=== PATIENT | female | born 1970 | race Two or more races ===

== ENCOUNTER 2024-09-10 14:23 | Emergency (ER) | payer MEDICAID, SELFPAY ==
[2024-09-10 14:42] VITALS: BP 113/66; PULSE 71; RESP 18; TEMP 36.6; O2SAT 96; BMI 29.9
--- NOTE | 2024-09-10 14:48 | XR_ITS ---
Examination: PA lateral chest 2 views TECHNIQUE: Upright PA lateral chest 2 views Exam date and time: September 10, 2024 1454 hours INDICATIONS: Shortness of breath today. FINDINGS: Normal heart size No pneumonia or pulmonary edema Moderate osteopenia IMPRESSION: No pneumonia or pulmonary edema
--- NOTE | 2024-09-10 14:48 | EKG_ITS ---
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
--- NOTE | 2024-09-10 14:49 | PD.EDRME ---
Rapid Medical Screening Exam RME Arrival date/time: 09/10/24 14:23 54 year old female present to ED for c/o of sob. I have greeted and performed a focused initial assessment of this patient. A comprehensive ED assessment and evaluation of the patient, analysis of all test results, and completion of the medical decision making process will be conducted by additional ED providers. Chief Complaint: Shortness of Breath/Dyspnea Time Seen by Provider: 09/10/24 14:40 Vital signs: Vital Signs Temperature 97.9 F 09/10/24 14:42 Pulse Rate 71 09/10/24 14:42 Respiratory Rate 18 09/10/24 14:42 Blood Pressure 113/66 09/10/24 14:42 Pulse Oximetry (%) 96 09/10/24 14:42 Oxygen Delivery Method Room Air 09/10/24 14:42
[2024-09-10 15:50] LABS: Basophils # (Auto) 0.1 Thou/mm3 (0.0-0.2); Basophils % (Auto) 1 % (0-2.5); Eosinophils # (Auto) 0.2 Thou/mm3 (0.0-0.5); Eosinophils % (Auto) 3 % (0-10); Hemoglobin 13.3 g/dL (12.0-16.0); Immature Granulocytes % (Auto) 0 % (0-0); Immature Granulocytes Auto 0.01 Thou/mm3 (0.00-0.00); Lymphocytes # (Auto) 1.5 Thou/mm3 (1.0-4.8); Lymphocytes % (Auto) 26 % (10-50); Mean Corpuscular HGB Conc 34.1 g/dl (31.0-37.0); Mean Corpuscular Hemoglobin 29.9 pg (25.0-35.0); Mean Corpuscular Volume 88 fL (80-100); Monocytes # (Auto) 0.3 Thou/mm3 (0.0-0.8); Monocytes % (Auto) 6 % (0-12); Neutrophils # (Auto) 3.7 Thou/mm3 (1.8-7.7); Neutrophils % (Auto) 64 % (37-80); Nucleated Red Blood Cell % 0 /100 WBC (0); Platelet Count 207 Thou/mm3 (140-440); RDW Standard Deviation 42.8 fL (36.4-46.3); Red Blood Count 4.45 Miln/mm3 (4.00-5.20); White Blood Count 5.7 Thou/mm3 (3.6-11.0)
[2024-09-10 16:16] LABS: B-Type Natriuretic Peptide < 20 pg/mL (0-100)
[2024-09-10 16:19] LABS: Alanine Aminotransferase 46 U/L (10-49); Albumin, Serum 4.8 gm/dL (3.5-5.0); Albumin/Globulin Ratio 1.4 (1.2-2.2); Alkaline Phosphatase 547 U/L (46-116); Anion Gap 10 (7-16); Aspartate Amino Transferase 87 U/L (0-34); BUN/Creatinine Ratio 12 Ratio (12-20); Blood Urea Nitrogen 11 mg/dL (9-23); Calcium 9.8 mg/dL (8.3-10.6); Calcium (Corrected) 9.8 mg/dL (8.5-10.1); Carbon Dioxide 24.1 mMol/L (20.0-31.0); Chloride 103 mMol/L (98-107); Creatinine (Component) 0.9 mg/dL (0.6-1.3); Estimated Creatinine Clearance 81.8 mL/min (>60); Globulin 3.4 gm/dL (2.3-3.5); Glucose 77 mg/dL (74-106); Osmolality,Calculated 272 (275-295); Potassium 4.1 mMol/L (3.4-5.1); Sodium 137 mMol/L (136-145); Total Protein 8.2 gm/dL (5.7-8.2); Troponin I < 0.002 ng/mL (0.0-0.045); eGFR > 60 See Note
[2024-09-10 18:43] LABS: Troponin I < 0.002 ng/mL (0.0-0.045)
[2024-09-10 20:25] VITALS: BP 138/81; PULSE 78; RESP 18; TEMP 36.3; O2SAT 96
--- NOTE | 2024-09-10 20:50 | PD.EDADULT ---
ED General RME/HPI General Chief complaint: Shortness of Breath/Dyspnea Stated complaint: INTERMITTENT SOB X 1 WK Time Seen by Provider: 09/10/24 14:40 Arrival date/time: 09/10/24 14:23 CC: Shortness of breath HPI intermittent over the past week, denies any chest pain or difficulty breathing no fever chills. Patient has no other complaints. RME / HPI RME / HPI narrative: 09/10/24 14:23 54 year old female present to ED for c/o of sob. I have greeted and performed a focused initial assessment of this patient. A comprehensive ED assessment and evaluation of the patient, analysis of all test results, and completion of the medical decision making process will be conducted by additional ED providers. Related Data Home Medications ?Medication ?Instructions ?Recorded ?Confirmed aripiprazole 30 mg tablet (Abilify) 30 mg PO QDAY 10/16/17 10/16/17 fluoxetine 40 mg capsule (Prozac) 80 mg PO DAILY 10/16/17 10/16/17 Previous Rx's ?Medication ?Instructions ?Recorded ibuprofen 600 mg tablet 600 mg PO TID #30 tabs 10/16/17 sulfamethoxazole 800 1 tab PO BID #14 tabs 10/16/17 mg-trimethoprim 160 mg tablet (Bactrim DS) ibuprofen 800 mg tablet 800 mg PO TID PRN pain #30 tabs 03/12/22 nirmatrelvir 300 mg (150 mg See Rx Instructions PO .COMPLEX 03/11/23 x2)-ritonavir 100 mg tablet,dose #30 tabs pack (Paxlovid) promethazine-DM 6.25 mg-15 mg/5 mL 5 ml PO Q6H #118 mL 03/11/23 oral syrup Allergies Allergy/AdvReac Type Severity Reaction Status Date / Time hernandez Allergy Severe Swelling Verified 09/10/24 14:26 of Lip/Tongue/Throat sanchez Allergy Severe Swelling Verified 09/10/24 14:26 of Lip/Tongue/Throat grass pollen Allergy Severe Swelling Verified 09/10/24 14:26 of Lip/Tongue/Throat juniper tar Allergy Severe Swelling Verified 09/10/24 14:26 of Lip/Tongue/Throat peanut Allergy Severe Swelling Verified 09/10/24 14:26 of Lip/Tongue/Throat peas Allergy Severe Swelling Verified 09/10/24 14:26 of Lip/Tongue/Throat aspirin AdvReac Severe Severe Verified 09/10/24 14:26 MIGRAINE Past Medical History Past Medical History CARDIAC: Negative Cardiac Disorders or Congestive Heart Failure RESPIRATORY: Negative Chronic Obstructive Pulmonary Disease (COPD) or Asthma GENITOURINARY: Negative Renal Disease ENDOCRINE: Negative Diabetes Mellitus Type 1 or Diabetes Mellitus Type 2 HEMATOLOGIC: Negative Sickle Cell Disease PSYCHO/SOCIAL: Positive Schizophrenia and Depression OTHER HISTORY: Positive Blood Transfusions; Negative Autoimmune Disease Family History FAMILY HISTORY: Positive Family Cardiac Disorders and Family Cancer; Negative Family Psychiatric Problems, Family Respiratory Disorders, Family Gastrointestinal Problems, Family Surgery or Family Anesthesia Reaction Surgical History SURGICAL: Positive Tonsillectomy Social History SMOKING STATUS: Former smoker ED Exam Narrative Physical exam: [General: Obese not in any acute distress Head normocephalic HEENT: Within acceptable limits Neck is supple nontender Chest equal chest rise nontender to palpation Respiratory: Clear to auscultation no wheezes crackles or rubs, no tachypnea no pursed lip breathing no nasal flaring. CV: Rate rhythm is regular no murmurs rubs or clicks Abdomen is distended secondary to body habitus soft nontender no masses positive bowel sounds all 4 quadrants Back: No CVA tenderness no spinous process tenderness from cervical spine thoracic and lumbar spine Skin: Intact no petechiae rash induration ulceration or crepitus Extremities: Moving all extremity against resistance cap refill less than 2 seconds neurosensory intact. No lower extremity edema Neuro: Awake alert oriented x3 Glascow coma 15 no focal deficits] Course Quality Measures none Orders Category Date Time Status Bedside Influenza A&B Antigen Test NOW Care 09/10/24 14:48 Completed EKG (ED ONLY) *Do not use* NOW Care 09/10/24 14:48 Completed EKG (ED Only) Stat Exams 09/10/24 14:48 Draft XR chest 2V Stat Exams 09/10/24 14:48 Completed BNP [B-Type Natriuretic Peptide] Stat Lab 09/10/24 15:07 Completed CBC Stat Lab 09/10/24 15:07 Completed CMP [Comprehensive Metabolic Panel] Stat Lab 09/10/24 15:07 Completed Troponin I Stat Lab 09/10/24 15:07 Completed Troponin I Stat Lab 09/10/24 17:40 Completed Vital Signs Vital signs: Vital Signs Temperature 97.9 F 09/10/24 14:42 Pulse Rate 71 09/10/24 14:42 Respiratory Rate 18 09/10/24 14:42 Blood Pressure 113/66 09/10/24 14:42 Pulse Oximetry (%) 96 09/10/24 14:42 Oxygen Delivery Method Room Air 09/10/24 14:42 [facility] Patient data External records reviewed:: [facility] previous records Clinical information provided by:: patient Social determinants that could affect healthcare access:: none Patient has the following chronic illnesses:: Depression GERD How is presenting disease/condition affected by chronic disease/condition?: uneffected by Evaluation data The following diagnostics were reviewed and interpreted by me:: lab results and radiology exam(s) Lab and/or radiology exams considered but not ordered:: CBC shows no acute leukocytosis anemia thrombocytopenia CMP shows no significant electrolyte imbalances renal impairment transaminitis other than alk phos of 547, Troponin and BNP within acceptable limits EKG performed at 1451 shows a ventricular rate of 72 ID interval 158 QRS of 8 4 QTc of [address] segment changes. Chest x-ray as interpreted by me read by radiology as negative for any acute finding requires emergent or immediate intervention Interpretation Summary: Patient claims to have shortness of breath and have there is no shortness of breath evidence with tachypnea or other physical signs as well as imaging and or chemistry that confirms this. Patient will be discharged home. Medications Medications considered but not ordered:: None Medication administrations:: None Consultations Consultation(s) initiated? (list below): No Diagnosis Differential Diagnosis ED Complaint MDM: Pneumonia bronchitis ACS Most likely diagnosis given after review of the tests above:: Shortness of breath Admission Indicated Admission indicated?: not indicated Explain why admission is indicated or not indicated:: Stable for discharge Admission Request Was there a request for admission?: No Disposition Plan Disposition Plan: Discharge Discharge Attestation Discharge Attestation: The patient and all family members were given an opportunity to ask questions and understood the discharge instructions. Discharge instructions specifically effects, indications for sooner follow up or return to the emergency department, and the expected course of current diagnosis. Patient condition: Stable Medical Decision Making Differential Diagnosis Differential Diagnosis: Pneumonia bronchitis ACS Lab Data 09/10/24 15:07 09/10/24 15:07 Labs: Lab Results 09/10/24 09/10/24 Range/Units 15:07 17:40 WBC 5.7 (3.6-11.0) Thou/mm3 RBC 4.45 (4.00-5.20) Miln/mm3 Hgb 13.3 (12.0-16.0) g/dL Hct 39.0 (36.0-46.0) % MCV 88 (80-100) fL MCH 29.9 (25.0-35.0) pg MCHC 34.1 (31.0-37.0) g/dl RDW Std Deviation 42.8 (36.4-46.3) fL Plt Count 207 (140-440) Thou/mm3 Neut % (Auto) 64 (37-80) % Lymph % (Auto) 26 (10-50) % [place] % (Auto) 6 (0-12) % Eos % (Auto) 3 (0-10) % Baso % (Auto) 1 (0-2.5) % Neut # (Auto) 3.7 (1.8-7.7) Thou/mm3 Lymph # (Auto) 1.5 (1.0-4.8) Thou/mm3 [place] # (Auto) 0.3 (0.0-0.8) Thou/mm3 Eos # (Auto) 0.2 (0.0-0.5) Thou/mm3 Baso # (Auto) 0.1 (0.0-0.2) Thou/mm3 Immature Gran # (Auto) 0.01 H (0.00-0.00) Thou/mm3 Absolute Nucleated RBC 0.00 (0.00-0.00) Thou/mm3 Immature Gran % 0 (0-0) % Nucleated RBC % 0 (0) /100 WBC Sodium 137 (136-145) mMol/L Potassium 4.1 (3.4-5.1) mMol/L Chloride 103 (98-107) mMol/L Carbon Dioxide 24.1 (20.0-31.0) mMol/L Anion Gap 10 (7-16) BUN 11 (9-23) mg/dL Creatinine 0.9 (0.6-1.3) mg/dL Estim Creat Clear Calc 81.8 (>60) mL/min eGFR > 60 (60 - ) See Note BUN/Creatinine Ratio 12 (12-20) Ratio Glucose 77 (74-106) mg/dL Calculated Osmolality 272 L (275-295) Calcium 9.8 (8.3-10.6) mg/dL Corrected Calcium 9.8 (8.5-10.1) mg/dL Total Bilirubin 1.0 (0.3-1.2) mg/dL AST 87 H (0-34) U/L ALT 46 (10-49) U/L Alkaline Phosphatase 547 H (46-116) U/L Troponin I < 0.002 < 0.002 (0.0-0.045) ng/mL B-Natriuretic Peptide < 20 (0-100) pg/mL Total Protein 8.2 (5.7-8.2) gm/dL Albumin 4.8 (3.5-5.0) gm/dL Globulin 3.4 (2.3-3.5) gm/dL Albumin/Globulin Ratio 1.4 (1.2-2.2) Discharge Plan Plan Patient Disposition: HOME (Self Care) Patient condition on transfer: Stable Prescriptions/Referrals Prescriptions/Med Rec: No Action fluoxetine [Prozac] 40 mg Capsule 80 mg PO DAILY aripiprazole [Abilify] 30 mg Tablet 30 mg PO QDAY sulfamethoxazole-trimethoprim [Bactrim DS] 800-160 mg tablet 1 tab PO BID Qty: 14 0RF ibuprofen 600 mg tablet 600 mg PO TID Qty: 30 0RF ibuprofen 800 mg tablet 800 mg PO TID PRN (Reason: pain) Qty: 30 0RF Paxlovid 300 mg (150 mg x 2)-100 mg tablets,dose pack See Rx Instructions .ROUTE .COMPLEX Qty: 30 0RF Rx Instructions: take TWO 150 mg tablets of nirmatrelvir with ONE 100 mg tablet of ritonavir twice daily for 5 days promethazine-DM 6.25-15 mg/5 mL syrup 5 ml PO Q6H Qty: 118 0RF Referrals: Joselo Starks MD [Primary Care Provider] - In 1 week Problem List Clinical Impression: Shortness of breath Patient/Caregiver Discharge Instructions Education Materials: ED Shortness of Breath (Dyspnea) Print Language: Turkmen Stand Alone Forms: Tracy Award Info., Work/School Release, Patient Portal Info Letter PA/ULISES Supervising Physician LINDSEY/ULISES Supervising Physician: Kevin Rodriguez ENP
== END 2024-09-10 21:02 | disposition home or self-care (01) ==
PROVIDERS: Nurse Practitioner Primary Care; Physician Assistant; Emergency Provider Emergency Medicine; PCP Family Medicine
DX: R06.02 Shortness of breath (principal)
CPT/HCPCS: 36415; 71046; 80053; 83880; 84484; 85025; 87400; 93005; 99283

== ENCOUNTER 2024-11-13 08:28 | Outpatient (CLI) | payer MEDICAID, SELFPAY ==
[2024-11-12 13:04] LABS: Basophils % (Auto) 1 % (0-2.5); Eosinophils # (Auto) 0.2 Thou/mm3 (0.0-0.5); Eosinophils % (Auto) 3 % (0-10); Hematocrit 39.3 % (36.0-46.0); Hemoglobin 13.4 g/dL (12.0-16.0); Immature Granulocytes % (Auto) 0 % (0-0); Immature Granulocytes Auto 0.02 Thou/mm3 (0.00-0.00); Lymphocytes # (Auto) 1.6 Thou/mm3 (1.0-4.8); Lymphocytes % (Auto) 30 % (10-50); Mean Corpuscular HGB Conc 34.1 g/dl (31.0-37.0); Mean Corpuscular Hemoglobin 30.2 pg (25.0-35.0); Mean Corpuscular Volume 89 fL (80-100); Monocytes # (Auto) 0.4 Thou/mm3 (0.0-0.8); Monocytes % (Auto) 7 % (0-12); Neutrophils % (Auto) 58 % (37-80); Nucleated Red Blood Cell % 0 /100 WBC (0); Platelet Count 219 Thou/mm3 (140-440); RDW Standard Deviation 44.5 fL (36.4-46.3); Red Blood Count 4.43 Miln/mm3 (4.00-5.20); White Blood Count 5.2 Thou/mm3 (3.6-11.0)
[2024-11-12 13:20] LABS: Partial Thromboplastin Time 26.9 Seconds (22.0-36.0); Prothrombin Time 10.8 Seconds (9.0-12.2)
--- NOTE | 2024-11-13 08:30 | XR_ITS ---
Examination: Ultrasound-guided percutaneous liver biopsy Ultrasound abdomen limited Exam date and time: November 13, 2024 0910 hours INDICATIONS: Elevated liver function tests on laboratory examination this month. Informed consent provided. Technique: A timeout was completed, verifying correct patient, procedure, site, positioning, and special equipment if applicable. The patient was placed in supine position for right lobe liver biopsy. The patient's skin was prepped and draped in sterile fashion. Maximum sterile barrier technique, hand hygiene, ultrasound sterile technique 1% lidocaine was used to anesthetize the skin and subcutaneous tissues. Ultrasound was utilized for two 18-gauge core liver biopsies, utilizing a BioPince needle. Specimens appear adequate. Estimated blood loss 0 cc. The patient tolerated the procedure well and there were no complications. Impression: Successful ultrasound-guided percutaneous liver biopsy.
[2024-11-13 09:26] VITALS: BP 135/62; PULSE 67; RESP 18; TEMP 36.3; O2SAT 96
[2024-11-13 09:30] VITALS: BP 122/65; PULSE 68; RESP 16; O2SAT 95
[2024-11-13 09:45] VITALS: BP 143/63; PULSE 71; RESP 21; O2SAT 95
[2024-11-13 09:53] VITALS: BMI 32.4
[2024-11-13] MEDS: ACETAMINOPHEN 500 MG TABLET 1000 MG PO (09:53)
[2024-11-13 10:00] VITALS: BP 131/72; PULSE 64; RESP 24; O2SAT 94
[2024-11-13 10:15] VITALS: BP 127/73; PULSE 65; RESP 16; O2SAT 96
[2024-11-13 10:30] VITALS: BP 102/65; PULSE 67; RESP 16; O2SAT 95
--- NOTE | 2024-11-13 12:50 | PC.NURSE ---
0926 patient is awake, alert, breathing unlabored, post liver biopsy done in ultrasound department with [employer] tech and Dr. Aurora MD wants to patient to recover in labor employment associate recover for 1 hour. Patient brought into labor employment associate, placed in [facility] in [facility], connected to vital signs monitor, no IV at this time. mild pain at this time 0953 tylenol PO given as ordered for pain 11/02 1015 patient states pain is lowering, still there 09/02 1049 patient is awake, alert, breathing unlabored, dressing to right lower abdomen dry with no bleeding, pt still having mild pain, pt asked if she wants to wait for Doctor recommendations or additional MD orders, Patient states she prefers to go home at this time and return to ER if pain increases. discharge instructions given to patient since she received local anesthesia, no sedation. patient educated on s/s to look for and reasons to return to ER. Patient discharged home in wheelchair, received ride from friend.
== END 2024-11-13 10:49 | disposition home or self-care (01) ==
LOC: SDIM 08:29 → SIRX 09:06
PROVIDERS: Radiology Diagnostic Radiology; PCP Family Medicine; Referring Provider Internal Medicine Gastroenterology; Visit Provider Internal Medicine Gastroenterology
DX: K76.89 Other specified diseases of liver (principal); Z01.812 Encounter for preprocedural laboratory examination
CPT/HCPCS: 47000; 36415; 76942; 85025; 85610; 85730; A9270

== ENCOUNTER → 2025-05-16 | Outpatient (CLI) | payer MEDICAID, SELFPAY ==
--- NOTE | 2025-05-16 11:00 | XR_ITS ---
Examination: CT abdomen, without intravenous contrast. CT pelvis, without intravenous contrast. CT abdomen, with intravenous contrast. CT pelvis, with intravenous contrast. 2-D sagittal coronal reconstructions. Date and time of exam: May 16, 2025, 1159 hours INDICATIONS: Right upper abdominal pain beginning 1 year ago COMPARISON: 09/21/2021 CTDI: vol (mGy) 10.2 DLP: (mGycm) 1123 Technique: Multiple 3.0 axial images of the abdomen and pelvis without intravenous contrast, 3.0 mm slice thickness. Multiple 3.0 postcontrast images abdomen and pelvis also obtained, post intravenous injection 60 cc [id number] 2-D sagittal and coronal reconstructions. Low dose protocols were performed. One or more of the following dose reduction techniques were used; automated exposure control, adjustment of the mA and/or KV according to patient size, use of iterative reconstruction technique. Findings: No renal or ureteral calculi Mild splenomegaly Absent gallbladder No pancreatic or adrenal mass No renal or ureteral calculi, no hydronephrosis Aorta normal size No pericecal inflammatory change No bowel obstruction Urinary bladder intact Anteverted uterus No adnexal mass Osseous structures intact IMPRESSION: No renal or ureteral calculi, no hydronephrosis No CT findings of appendicitis bowel obstruction or diverticulitis Mild splenomegaly
== END | disposition home or self-care (01) ==
LOC: SCAT 10:20
PROVIDERS: PCP Family Medicine; Referring Provider Internal Medicine Gastroenterology; Visit Provider Internal Medicine Gastroenterology
DX: R16.1 Splenomegaly, not elsewhere classified (principal)
CPT/HCPCS: 74178; A4649; Q9967